=== PATIENT | female | born 1975 | race Caucasian/White ===

== ENCOUNTER 2020-09-12 17:57 | Emergency (ER) | payer OTHER ==
[2020-09-12 18:03] VITALS: RESP 18
[2020-09-12] MEDS ORDERED: SODIUM CHLORIDE 0.9% 1,000 ML IV STA (18:41)
[2020-09-12] MEDS ORDERED: KETOROLAC 15 MG/ML 1 ML VIAL IVP STA (18:41)
[2020-09-12 19:11] LABS: Basophils % (A) 0 %; Eosinophils # (A) 0.1 k/uL (0-0.7); Eosinophils % (A) 1 %; HCT 43.3 % (34.0-46.0); HGB 14.5 gm/dL (11.4-16.0); Lymphocytes # (A) 1.4 k/uL (1.0-4.8); Lymphocytes % (A) 18 %; MCH 29.6 pg (25.0-35.0); MCHC 33.5 g/dL (31.0-37.0); MCV 88.4 fL (80.0-100.0); Mean Platelet Volume 7.8; Monocytes # (A) 0.4 k/uL (0-1.0); Monocytes % (A) 5 %; Neutrophils # (A) 5.9 k/uL (1.3-7.7); Neutrophils % (A) 75 %; Platelet Count 222 k/uL (150-450); RBC 4.89 m/uL (3.80-5.40); RDW 13.1 % (11.5-15.5); WBC 7.9 k/uL (3.8-10.6)
[2020-09-12 19:14] LABS: Appearance,Urine Clear (Clear); Bacteria,Urine Rare /hpf; Bilirubin,Urine Negative (Negative); Blood,Urine Negative (Negative); Color,Urine Colorless; Glucose,Urine (UA) Negative (Negative); Ketones,Urine Trace (Negative); Leukocyte Esterase,Urine Trace (Negative); Nitrite,Urine Negative (Negative); PH, Urine 6.5 (5.0-8.0); Protein,Urine Negative (Negative); RBC,Urine <1 /hpf (0-5); Specific Gravity,Urine 1.002 (1.001-1.035); Squamous Epithelial Cell,Urine <1 /hpf (0-4); Urobilinogen,Urine <2.0 mg/dL (<2.0); WBC,Urine 1 /hpf (0-5)
[2020-09-12 19:20] LABS: ALT 17 U/L (4-34); AST 18 U/L (14-36); African American GFR (CKD) >90 (>60 ml/min/1.73 sqM); Albumin 4.5 g/dL (3.5-5.0); Alkaline Phosphatase 49 U/L (38-126); Anion Gap 5 mmol/L; Blood Urea Nitrogen 10 mg/dL (7-17); Calcium 9.5 mg/dL (8.4-10.2); Carbon Dioxide 28 mmol/L (22-30); Chloride 105 mmol/L (98-107); Glucose 88 mg/dL (74-99); Lipase 97 U/L (23-300); Non-African American GFR(CKD) >90 (>60 ml/min/1.73 sqM); Sodium 138 mmol/L (137-145); Total Bilirubin 0.4 mg/dL (0.2-1.3); Total Protein 7.6 g/dL (6.3-8.2)
[2020-09-12 19:21] LABS: Potassium 4.2 mmol/L (3.5-5.1)
--- NOTE | 2020-09-12 20:06 | CT ---
EXAMINATION TYPE: CT abdomen pelvis w con DATE OF EXAM: 09/12/2020 COMPARISON: None INDICATION: Right lower quadrant abdominal pain. DLP: 787.2 mGycm, Automated exposure control for dose reduction was used. CONTRAST: 100ml mL of Isovue 300. Study performed without Oral Contrast TECHNIQUE: Axial images were obtained from above the diaphragm to the pubic rami in the axial plane a t 5 mm thick sections. Reconstructed images are reviewed on the computer in the coronal plane. FINDINGS: Limited CT sections are obtained the lung bases. The lung bases are clear. CT ABDOMEN: Liver: Small cyst may be within the right lobe liver. Spleen: Normal Pancreas: Normal Adrenal glands: The adrenal glands are normal. Gallbladder: Normal Kidneys: No masses are evident. No hydronephrosis is present. No cysts are present. Delayed images were obtained through the kidneys, which remain unremarkable. Aorta: Normal Inferior vena cava: Normal. CT PELVIS: Loops of bowel within the abdomen and pelvis are normal. Study is without oral contrast limiting bowel evaluation. Appendix: A small decompressed appendix appears to be present. Suspicious inflammatory changes are no t identified. No dilated tubular structures evident. Urinary bladder: Normal. Genitourinary structures: Uterine endometrial canal is somewhat prominent. Correlate with the menstru al cycle stage. Adnexal regions are normal. Osseous structures: No suspicious lytic or sclerotic lesions. IMPRESSIONS: 1. The appendix appears normal. No suspicious secondary signs for acute appendicitis are evident. 2. Prominent endometrial canal. Correlate with the menstrual cycle stage.
[2020-09-12] MEDS ORDERED: MORPHINE SULFATE 4 MG/ML SYRINGE IVP STA (20:52)
--- NOTE | 2020-09-12 21:10 | ED ---
Abdominal Pain HPI - General Chief Complaint: Abdominal Pain Stated Complaint: abd pain Time Seen by Provider: 09/12/20 18:04 Source: patient Mode of arrival: ambulatory Limitations: no limitations - History of Present Illness Initial Comments: 44-year-old female with reported history of partial hysterectomy who presents emergency room with reported right lower quadrant abdominal pain. Patient states it's been intermittent, starting today. Denies any provocative factors. Denies any radiation of the pain. She has no associated dysuria, hematuria or double voiding. Denies diarrhea constipation, melenic stools or hematochezia. No abnormal vaginal bleeding or discharge. Reports that she hasn't had a menstrual cycle in 15 years when her hysterectomy was performed. She denies any fevers or chills. No nausea or vomiting. No concern for sexual transmitted infections. No back or flank pain. No other alleviating, precipitating or modifying factors - Related Data Home Medications Medication Instructions Recorded Confirmed No Known Home Medications 09/12/20 09/12/20 Allergies Allergy/AdvReac Type Severity Reaction Status Date / Time No Known Allergies Allergy Verified 09/12/20 20:15 Review of Systems ROS Statement: Those systems with pertinent positive or pertinent negative responses have been documented in the HPI. ROS Other: All systems not noted in ROS Statement are negative. Past Medical History Past Medical History: No Reported History History of Any Multi-Drug Resistant Organisms: None Reported Past Surgical History: Hysterectomy, Tubal Ligation Past Psychological History: No Psychological Hx Reported Smoking Status: Never smoker Past Alcohol Use History: None Reported Past Drug Use History: None Reported General Exam Limitations: no limitations Course Vital Signs 09/12/20 09/12/20 09/12/20 18:00 21:07 22:06 Temperature 98.5 F 98.6 F Pulse Rate 82 75 70 Respiratory 18 18 18 Rate Blood Pressure 110/78 102/75 110/70 O2 Sat by Pulse 100 100 98 Oximetry - Reevaluation(s) Reevaluation #1: [place] Dr. Brooks who recommends as the patient does demonstrate what appears to be a uterus 09/12/20 21:08 Medical Decision Making - Medical Decision Making Upon arrival patient was placed into room 22. A thorough history and physical exam was performed. Laboratory studies were conducted and reviewed. Urinalysis has rare bacteria with trace at the site Estrace. Patient went over for a CT of her abdomen and pelvis which does read that she has some fluid within the endometrial canal. The appendix appears normal. I discussed this information with the patient. She does report that she had a partial obstructing 15 years ago. I did discuss the patient's case with Dr. Medellin and recommended a transvaginal ultrasound. This is performed which demonstrates right hydrosalpinx. Uterus intact with consideration for possible endometrial ablation. Thickened complex cystic area within the fundus of uterus. Results are relayed to the patient. She is informed that she has not had a partial hysterectomy and possible endometrial ablation. Results of the patient's ultrasound are discussed with Dr. Power. Patient will be treated with antibiotics for her abnormal UA and given medications for pain control. Patient is flying home to [place] tomorrow. She is instructed she needs to follow-up with her [facility] within 1 week. We'll need a repeat ultrasound within 4-6 weeks. Patient understood this. If she has any new or worsening symptoms she is to go to the closest hospital. Patient was then discharged home in stable condition - Lab Data Result diagrams: 09/12/20 18:54 09/12/20 18:54 Lab Results 09/12/20 09/12/20 09/12/20 Range/Units 18:54 18:54 18:54 WBC 7.9 (3.8-10.6) k/uL RBC 4.89 (3.80-5.40) m/uL Hgb 14.5 (11.4-16.0) gm/dL Hct 43.3 (34.0-46.0) % MCV 88.4 (80.0-100.0) fL MCH 29.6 (25.0-35.0) pg MCHC 33.5 (31.0-37.0) g/dL RDW 13.1 (11.5-15.5) % Plt Count 222 (150-450) k/uL MPV 7.8 Neutrophils % 75 % Lymphocytes % 18 % Monocytes % 5 % Eosinophils % 1 % Basophils % 0 % Neutrophils # 5.9 (1.3-7.7) k/uL Lymphocytes # 1.4 (1.0-4.8) k/uL Monocytes # 0.4 (0-1.0) k/uL Eosinophils # 0.1 (0-0.7) k/uL Basophils # 0.0 (0-0.2) k/uL Sodium 138 (137-145) mmol/L Potassium 4.2 (3.5-5.1) mmol/L Chloride 105 (98-107) mmol/L Carbon Dioxide 28 (22-30) mmol/L Anion Gap 5 mmol/L BUN 10 (7-17) mg/dL Creatinine 0.52 (0.52-1.04) mg/dL Est GFR (CKD-EPI)AfAm >90 (>60 ml/min/1.73 sqM) Est GFR (CKD-EPI)NonAf >90 (>60 ml/min/1.73 sqM) Glucose 88 (74-99) mg/dL Plasma Lactic Acid Gene (0.7-2.0) mmol/L Calcium 9.5 (8.4-10.2) mg/dL Total Bilirubin 0.4 (0.2-1.3) mg/dL AST 18 (14-36) U/L ALT 17 (4-34) U/L Alkaline Phosphatase 49 (38-126) U/L Total Protein 7.6 (6.3-8.2) g/dL Albumin 4.5 (3.5-5.0) g/dL Lipase 97 (23-300) U/L Urine Color Colorless Urine Appearance Clear (Clear) Urine pH 6.5 (5.0-8.0) Ur Specific Lyons 1.002 (1.001-1.035) Urine Protein Negative (Negative) Urine Glucose (UA) Negative (Negative) Urine Ketones Trace H (Negative) Urine Blood Negative (Negative) Urine Nitrite Negative (Negative) Urine Bilirubin Negative (Negative) Urine Urobilinogen <2.0 (<2.0) mg/dL Ur Leukocyte Esterase Trace H (Negative) Urine RBC <1 (0-5) /hpf Urine WBC 1 (0-5) /hpf Ur Squamous Epith Cells <1 (0-4) /hpf Urine Bacteria Rare H (None) /hpf 09/12/20 Range/Units 18:54 WBC (3.8-10.6) k/uL RBC (3.80-5.40) m/uL Hgb (11.4-16.0) gm/dL Hct (34.0-46.0) % MCV (80.0-100.0) fL MCH (25.0-35.0) pg MCHC (31.0-37.0) g/dL RDW (11.5-15.5) % Plt Count (150-450) k/uL MPV Neutrophils % % Lymphocytes % % Monocytes % % Eosinophils % % Basophils % % Neutrophils # (1.3-7.7) k/uL Lymphocytes # (1.0-4.8) k/uL Monocytes # (0-1.0) k/uL Eosinophils # (0-0.7) k/uL Basophils # (0-0.2) k/uL Sodium (137-145) mmol/L Potassium (3.5-5.1) mmol/L Chloride (98-107) mmol/L Carbon Dioxide (22-30) mmol/L Anion Gap mmol/L BUN (7-17) mg/dL Creatinine (0.52-1.04) mg/dL Est GFR (CKD-EPI)AfAm (>60 ml/min/1.73 sqM) Est GFR (CKD-EPI)NonAf (>60 ml/min/1.73 sqM) Glucose (74-99) mg/dL Plasma Lactic Acid Gene 1.0 (0.7-2.0) mmol/L Calcium (8.4-10.2) mg/dL Total Bilirubin (0.2-1.3) mg/dL AST (14-36) U/L ALT (4-34) U/L Alkaline Phosphatase (38-126) U/L Total Protein (6.3-8.2) g/dL Albumin (3.5-5.0) g/dL Lipase (23-300) U/L Urine Color Urine Appearance (Clear) Urine pH (5.0-8.0) Ur Specific Lyons (1.001-1.035) Urine Protein (Negative) Urine Glucose (UA) (Negative) Urine Ketones (Negative) Urine Blood (Negative) Urine Nitrite (Negative) Urine Bilirubin (Negative) Urine Urobilinogen (<2.0) mg/dL Ur Leukocyte Esterase (Negative) Urine RBC (0-5) /hpf Urine WBC (0-5) /hpf Ur Squamous Epith Cells (0-4) /hpf Urine Bacteria (None) /hpf Disposition Clinical Impression: Right sided abdominal pain Disposition: HOME SELF-CARE Condition: Stable Instructions (If sedation given, give patient instructions): Abdominal Pain (ED) Additional Instructions: Please follow-up with your OB. You will need a repeat ultrasound in 4-6 weeks. Return to the emergency room for any new or worsening symptoms Is patient prescribed a controlled substance at d/c from ED?: No Referrals: None,Stated [Primary Care Provider] - 1-2 days Time of Disposition: 22:31
--- NOTE | 2020-09-12 21:51 | US ---
EXAMINATION TYPE: US transvaginal DATE OF EXAM: 09/12/2020 COMPARISON: CLINICAL HISTORY: pelvic pain . Pelvic pain. Patient states having a partial hysterectomy but doesn' t know what she had removed. Patient states she had bad periods that lasted 2 weeks and they stopped from the surgery. TECHNIQUE: Transvaginal (TV). Date of LMP: Unknown EXAM MEASUREMENTS: Uterus: 7.8 x 5.4 x 3.7 cm Endometrial Stripe: 0.3 cm Possible Left Ovary: 2.3 x 1.5 x 1.4 cm 1. Uterus: Anteverted heterogenous. Uterus appears intact despite the history of a partial hystere ctomy. History of May be related to endometrial ablation. Right fundal cystic appearing lesion with i nternal echoes = 1.8 x 2.6 x 1.7 cm, unable to accurately determine if origin in endometrium vs myome trium. This would correlate with CT examination. Cystic lesion near endometrium = 0.6 x 0.3 x 0.3 cm 2. Endometrium: could be ablated in appearance. 3. Right Ovary: not accurately visualized 4. Left Ovary: Possible left ovary visualized Spectral, color and waveform doppler imaging shows good arterial and venous flow within the possibl e left ovary; there is no evidence for ovarian torsion. 5. Bilateral Adnexa: in right adnexa, tubal fluid filled lesion seen with internal echoes. 6. Posterior cul-de-sac: no free fluid IMPRESSION: 1. Consider right hydrosalpinx within the differential. 2. Uterus appears intact. Endometrial ablation history should be considered. 3. Thickened complex cystic area within the fundus of the uterus. This is uncertain endometrial versu s myometrial origin.
[2020-09-12] MEDS ORDERED: CEPHALEXIN 500 MG CAP PO STA (21:57)
[2020-09-12 22:07] VITALS: BP 110/70; PULSE 70; TEMP 98.6
[2020-09-12] MEDS ORDERED: CEPHALEXIN 500MG STARTER PACK 4 CAP BTL PO STA (22:30)
[2020-09-12] MEDS ORDERED: ACET/COD 300 MG/30 MG STARTER PACK 6 TAB BTL PO STA (22:30)
== END 2020-09-12 22:41 | disposition home or self-care (01) ==
LOC: EC 17:57
DX: R10.31 Right lower quadrant pain (principal)
CPT/HCPCS: 36415; 80053; 83605; 83690; 85025; 81001; 93976; 76830; 74177; 99284; 96374; 96375; 96361 ×2; J2270; J1885; Q9967